=== PATIENT | male | born 1945 | race Caucasian/White ===

== ENCOUNTER 2020-01-09 10:23 | Inpatient (IN) | payer MEDICARE, BC ==
[2020-01-06 16:39] LABS: BASOPHILS # (AUTO) 0.1 (0.0-0.1); BASOPHILS % 0.8 % (0.0-1.0); EOSINOPHILS # (AUTO) 0.3 (0.0-0.4); EOSINOPHILS % 4.5 % (0.0-6.0); HEMATOCRIT 43.3 % (38.2-49.6); LYMPHOCYTES # (AUTO) 1.5 (1.0-3.2); LYMPHOCYTES % 23.2 % (18.0-39.1); MEAN CORPUSCULAR HEMOGLOBIN 29.7 pg (28-32); MEAN CORPUSCULAR HGB CONC 32.3 g/dL (31-35); MEAN CORPUSCULAR VOLUME 91.9 fL (81-99); MONOCYTES # (AUTO) 0.7 (0.2-0.8); MONOCYTES % 10.6 % (4.4-11.3); NEUTROPHILS % 60.6 % (38.7-80.0); PLATELET COUNT 191 x10e3/uL (140-360); RED BLOOD COUNT 4.71 x10e6/uL (4.3-5.7); RED CELL DISTRIBUTION WIDTH 13.8 % (11.7-14.4)
[2020-01-06 16:59] LABS: ANION GAP 11.7 mmol/L (8-16); CALCIUM 9.8 mg/dL (8.4-10.2); CREATININE, SERUM 1.27 mg/dL (0.72-1.25); POTASSIUM 4.7 mmol/L (3.5-5.1)
[~2020-01-09] VITALS: Ht 167.6 cm; Wt 65.8 kg
[~2020-01-09 10:23] MED LIST: ALLEGRA ALLERGY60 MG PO; ANORO ELLIPTA1 EACH INH; ANTI-DIARRHEAL2 MG PO; ATORVASTATIN CA20 MG PO; FINASTERIDE5 MG PO; MAGNESIUM100 MG PEG; MONTELUKAST SOD10 MG PO; MUCINEX DM ER1 EACH PO; MUCUS RELIEF400 MG PO; OMEGA-31000 MG PO; PATADAY2.5 ML OU; PROTONIX20 MG PO; RAPAFLO8 MG PO; TUMS ULTRA400 MG PO; VITAMIN B COMP1 EACH PO; VITAMIN C500 M4 PO; VITAMIN D3250 MC1 PEG; [UNRECOGNIZED DRUG - OTHER] PO
[2020-01-09] MEDS ORDERED: SODIUM CHLORIDE 0.9% 1000ML 1,000 ML ONE (10:39)
[2020-01-09] MEDS ORDERED: CEFTRIAXONE SOD 1 GM/NS 50 ML 50 ML IV ONE (10:43)
[2020-01-09] MEDS ORDERED: GENTAMICIN 80MG/NS 100 ML 200 ML IV ONE (10:44)
[2020-01-09] MEDS ORDERED: IRON GUMMIES PO (10:55)
[2020-01-09 11:22] LABS: ANION GAP 13.1 mmol/L (8-16); CALCIUM 9.5 mg/dL (8.4-10.2); CREATININE, SERUM 1.31 mg/dL (0.72-1.25); POTASSIUM 4.1 mmol/L (3.5-5.1)
[2020-01-09] MEDS ORDERED: IOPAMIDOL 300MG/ML 50ML INFUS..BTL IV ONE (11:22)
[2020-01-09] MEDS ORDERED: B&O 60MG R/S 60 MG SUPP PR ONE (11:23)
[2020-01-09] MEDS ORDERED: FENTANYL CITRATE/PF 100MCG/2 ML INJ ONE ×2 (12:48→13:23)
[2020-01-09] MEDS ORDERED: DIPHENHYDRAMINE HCL 25 MG CAP PO PRN (14:15)
[2020-01-09] MEDS ORDERED: ACETAMINOPHEN/CODEINE 300MG - 30MG TAB PO PRN (14:15)
[2020-01-09] MEDS ORDERED: ONDANSETRON HCL INJ 2MG/ML 2ML 2 MG/ML VIAL IV PRN (14:15)
[2020-01-09] MEDS ORDERED: B&O 60MG R/S 60 MG SUPP PR PRN (14:15)
[2020-01-09] MEDS ORDERED: METOCLOPRAMIDE HCL 10 MG/2ML VIAL ONE (14:18)
[2020-01-09] MEDS ORDERED: ONDANSETRON HCL INJ 2MG/ML 2ML 2 MG/ML VIAL ONE (15:33)
[2020-01-09] MEDS ORDERED: SEVOFLURANE INHAL SOLN 250 ML PEN BTL ONE (15:33)
[2020-01-09] MEDS ORDERED: PROPOFOL IV EMULSION 10 MG/ML 20 ML VIAL ONE (15:33)
[2020-01-09] MEDS ORDERED: LIDOCAINE HCL 2% LOCAL INJ 5 ML SDV VIAL INJ ONE (15:33)
[2020-01-09] MEDS ORDERED: HYDRALAZINE HCL 20 MG/ML VIAL ONE (15:33)
[2020-01-09] MEDS ORDERED: DEXAMETHASONE SOD PHOS INJ 4 MG/ML VIAL ONE (15:33)
[2020-01-09 16:07] LABS: BASOPHILS % 0.3 % (0.0-1.0); EOSINOPHILS # (AUTO) 0.1 (0.0-0.4); EOSINOPHILS % 0.6 % (0.0-6.0); HEMATOCRIT 42.2 % (38.2-49.6); HEMOGLOBIN 13.6 g/dL (14.0-18.0); LYMPHOCYTES % 8.2 % (18.0-39.1); MEAN CORPUSCULAR HGB CONC 32.2 g/dL (31-35); MONOCYTES # (AUTO) 0.3 (0.2-0.8); MONOCYTES % 2.8 % (4.4-11.3); NEUTROPHILS # (AUTO) 10.4 (2.1-6.9); NEUTROPHILS % 87.7 % (38.7-80.0); PLATELET COUNT 213 x10e3/uL (140-360); RED BLOOD COUNT 4.54 x10e6/uL (4.3-5.7); RED CELL DISTRIBUTION WIDTH 13.9 % (11.7-14.4)
[2020-01-09] MEDS: D5.45%NS/KCL 20MEQ 1,000 ML IV SCH (16:17)
[2020-01-09] MEDS: ACETAMINOPHEN/CODEINE 300MG - 30MG TAB PO PRN ×2 (16:18→21:23)
[2020-01-09 16:22] LABS: BLOOD UREA NITROGEN 16 mg/dL (7-26); BUN/CREATININE RATIO 15 (6-25); CALCIUM 8.1 mg/dL (8.4-10.2); CARBON DIOXIDE 20 mmol/L (22-29); CHLORIDE 109 mmol/L (98-107); CREATININE, SERUM 1.06 mg/dL (0.72-1.25); EST GLOMERULAR FILTRATION RATE > 60 ML/MIN (60-); GLUCOSE 160 mg/dL (74-118); SODIUM 138 mmol/L (136-145)
[2020-01-09 16:34] VITALS: BP 124/81
[2020-01-09 16:40] VITALS: BP 124/81
[2020-01-09] MEDS: CEFTRIAXONE SOD 1 GM/NS 50 ML 50 ML IV SCH (16:48)
[2020-01-09] MEDS: DOCUSATE SODIUM 100 MG CAP PO SCH (16:48)
[2020-01-09] MEDS ORDERED: MAGNESIUM SULFATE 2GM/50ML IV ONE (17:30)
[2020-01-09] MEDS ORDERED: GABAPENTIN 100 MG CAP PO PRN (17:45)
[2020-01-09] MEDS ORDERED: MAGNESIUM SULFATE 2GM/50ML 50 ML IV ONE (18:00)
[2020-01-09 19:56] VITALS: BP 118/96
[2020-01-09 20:00] VITALS: BP 118/96
[2020-01-09] MEDS: PHENAZOPYRIDINE HCL 100 MG TAB PO PRN (21:23)
[2020-01-09 23:52] VITALS: BP 130/85
[2020-01-10] VITALS (8 sets, daily range): BP systolic 120–149; BP diastolic 73–92
[2020-01-10] MEDS: D5.45%NS/KCL 20MEQ 1,000 ML IV SCH (02:42)
[2020-01-10 05:07] LABS: BASOPHILS % 0.1 % (0.0-1.0); HEMATOCRIT 33.9 % (38.2-49.6); HEMOGLOBIN 10.9 g/dL (14.0-18.0); LYMPHOCYTES # (AUTO) 0.8 (1.0-3.2); LYMPHOCYTES % 5.6 % (18.0-39.1); MEAN CORPUSCULAR HGB CONC 32.2 g/dL (31-35); MEAN CORPUSCULAR VOLUME 93.4 fL (81-99); MONOCYTES # (AUTO) 1.3 (0.2-0.8); MONOCYTES % 8.7 % (4.4-11.3); NEUTROPHILS # (AUTO) 12.2 (2.1-6.9); NEUTROPHILS % 85.3 % (38.7-80.0); PLATELET COUNT 176 x10e3/uL (140-360); RED BLOOD COUNT 3.63 x10e6/uL (4.3-5.7); RED CELL DISTRIBUTION WIDTH 13.9 % (11.7-14.4)
[2020-01-10 05:29] LABS: ANION GAP 10.8 mmol/L (8-16); BLOOD UREA NITROGEN 15 mg/dL (7-26); BUN/CREATININE RATIO 13 (6-25); CALCIUM 8.1 mg/dL (8.4-10.2); CARBON DIOXIDE 26 mmol/L (22-29); CHLORIDE 94 mmol/L (98-107); CREATININE, SERUM 1.15 mg/dL (0.72-1.25); EST GLOMERULAR FILTRATION RATE > 60 ML/MIN (60-); GLUCOSE 142 mg/dL (74-118); POTASSIUM 4.8 mmol/L (3.5-5.1); SODIUM 126 mmol/L (136-145)
[2020-01-10 05:52] LABS: MAGNESIUM 1.9 MG/DL (1.3-2.1); PHOSPHORUS 2.7 MG/DL (2.3-4.7)
[2020-01-10] MEDS ORDERED: TEMAZEPAM 15 MG CAP PO PRN (08:30)
[2020-01-10] MEDS: DOCUSATE SODIUM 100 MG CAP PO SCH ×2 (09:00→17:00)
[2020-01-10] MEDS: ACETAMINOPHEN/CODEINE 300MG - 30MG TAB PO PRN ×2 (09:00→23:25)
[2020-01-10] MEDS: CEFTRIAXONE SOD 1 GM/NS 50 ML 50 ML IV SCH (15:16)
[2020-01-10] MEDS: PHENAZOPYRIDINE HCL 100 MG TAB PO PRN (19:29)
[2020-01-11] VITALS (8 sets, daily range): BP systolic 121–159; BP diastolic 75–97
[2020-01-11 06:04] LABS: BASOPHILS % 0.3 % (0.0-1.0); EOSINOPHILS # (AUTO) 0.2 (0.0-0.4); EOSINOPHILS % 1.4 % (0.0-6.0); HEMATOCRIT 32.4 % (38.2-49.6); HEMOGLOBIN 10.4 g/dL (14.0-18.0); LYMPHOCYTES # (AUTO) 1.3 (1.0-3.2); LYMPHOCYTES % 12.5 % (18.0-39.1); MEAN CORPUSCULAR HEMOGLOBIN 29.9 pg (28-32); MEAN CORPUSCULAR HGB CONC 32.1 g/dL (31-35); MEAN CORPUSCULAR VOLUME 93.1 fL (81-99); MONOCYTES # (AUTO) 1.3 (0.2-0.8); NEUTROPHILS # (AUTO) 7.7 (2.1-6.9); NEUTROPHILS % 73.4 % (38.7-80.0); PLATELET COUNT 188 x10e3/uL (140-360); RED BLOOD COUNT 3.48 x10e6/uL (4.3-5.7); RED CELL DISTRIBUTION WIDTH 14.2 % (11.7-14.4)
[2020-01-11 06:39] LABS: ANION GAP 10.6 mmol/L (8-16); BLOOD UREA NITROGEN 14 mg/dL (7-26); BUN/CREATININE RATIO 12 (6-25); CALCIUM 9.7 mg/dL (8.4-10.2); CARBON DIOXIDE 26 mmol/L (22-29); CHLORIDE 104 mmol/L (98-107); CREATININE, SERUM 1.17 mg/dL (0.72-1.25); EST GLOMERULAR FILTRATION RATE > 60 ML/MIN (60-); GLUCOSE 122 mg/dL (74-118); POTASSIUM 4.6 mmol/L (3.5-5.1); SODIUM 136 mmol/L (136-145)
[2020-01-11] MEDS: DOCUSATE SODIUM 100 MG CAP PO SCH ×2 (08:32→17:00)
[2020-01-11] MEDS: ACETAMINOPHEN/CODEINE 300MG - 30MG TAB PO PRN (15:40)
[2020-01-11] MEDS: CEFTRIAXONE SOD 1 GM/NS 50 ML 50 ML IV SCH (17:00)
[2020-01-11] MEDS ORDERED: ONDANSETRON HCL INJ 2MG/ML 2ML 2 MG/ML VIAL IV STA (19:37)
[2020-01-12] VITALS (7 sets, daily range): BP systolic 136–148; BP diastolic 69–88
[2020-01-12] MEDS: SODIUM CHLORIDE 0.9% 1000ML 1,000 ML IV SCH ×2 (08:56→21:34)
[2020-01-12] MEDS: DOCUSATE SODIUM 100 MG CAP PO SCH ×2 (08:56→16:23)
[2020-01-12] MEDS: CEFTRIAXONE SOD 1 GM/NS 50 ML 50 ML IV SCH (14:36)
[2020-01-13] VITALS (7 sets, daily range): BP systolic 139–152; BP diastolic 79–92
[2020-01-13 05:09] LABS: BASOPHILS % 0.4 % (0.0-1.0); EOSINOPHILS # (AUTO) 0.2 (0.0-0.4); HEMATOCRIT 27.3 % (38.2-49.6); HEMOGLOBIN 9.1 g/dL (14.0-18.0); LYMPHOCYTES # (AUTO) 0.8 (1.0-3.2); LYMPHOCYTES % 10.3 % (18.0-39.1); MEAN CORPUSCULAR HEMOGLOBIN 30.7 pg (28-32); MEAN CORPUSCULAR HGB CONC 33.3 g/dL (31-35); MEAN CORPUSCULAR VOLUME 92.2 fL (81-99); MONOCYTES # (AUTO) 0.9 (0.2-0.8); MONOCYTES % 11.9 % (4.4-11.3); NEUTROPHILS # (AUTO) 5.6 (2.1-6.9); NEUTROPHILS % 74.1 % (38.7-80.0); PLATELET COUNT 164 x10e3/uL (140-360); RED BLOOD COUNT 2.96 x10e6/uL (4.3-5.7); RED CELL DISTRIBUTION WIDTH 13.4 % (11.7-14.4)
[2020-01-13 05:28] LABS: ANION GAP 9.3 mmol/L (8-16); BLOOD UREA NITROGEN 15 mg/dL (7-26); BUN/CREATININE RATIO 18 (6-25); CALCIUM 8.6 mg/dL (8.4-10.2); CARBON DIOXIDE 26 mmol/L (22-29); CHLORIDE 103 mmol/L (98-107); CREATININE, SERUM 0.82 mg/dL (0.72-1.25); EST GLOMERULAR FILTRATION RATE > 60 ML/MIN (60-); GLUCOSE 116 mg/dL (74-118); POTASSIUM 3.3 mmol/L (3.5-5.1); SODIUM 135 mmol/L (136-145)
[2020-01-13] MEDS ORDERED: CALCIUM CARBONATE 500 MG CHEWABLE TABS PO SCH (08:00)
[2020-01-13] MEDS ORDERED: POTASSIUM CHLORIDE 10MEQ EA PO ONE (08:15)
[2020-01-13] MEDS ORDERED: CALCIUM CARBONATE 500 MG CHEWABLE TABS PO PRN (08:45)
[2020-01-13] MEDS: DOCUSATE SODIUM 100 MG CAP PO SCH (08:51)
[2020-01-13] MEDS ORDERED: MONTELUKAST SODIUM 10 MG TAB PO SCH (09:00)
[2020-01-13] MEDS ORDERED: LORATADINE 10 MG TAB PO ONE (09:00)
[2020-01-13] MEDS ORDERED: OLOPATADINE (OPTH) 5 ML BTL OP SCH (09:00)
[2020-01-13] MEDS ORDERED: NON-FORMULARY MEDICATION (Silodosin (Rapaflo) 8 MG) PO SCH (09:00)
[2020-01-13] MEDS ORDERED: PANTOPRAZOLE SOD 40 MG TABEC PO SCH (09:00)
[2020-01-13] MEDS ORDERED: MAGNESIUM OXIDE 400 MG TAB PO SCH (09:00)
[2020-01-13] MEDS ORDERED: ACETAMINOPHEN 325 MG TAB PO ONE (09:00)
[2020-01-13] MEDS ORDERED: IRON SUCROSE 100 MG in SODIUM CHLORIDE 0.9% 100 ML 100 ML IV SCH (09:15)
[2020-01-13] MEDS: SODIUM CHLORIDE 0.9% 1000ML 1,000 ML IV SCH (11:38)
[2020-01-13] MEDS ORDERED: ONDANSETRON HCL 4 MG ORAL DISINTEGRATING TAB PO PRN (12:00)
[2020-01-13] MEDS: CEFTRIAXONE SOD 1 GM/NS 50 ML 50 ML IV SCH (14:15)
[2020-01-13] MEDS ORDERED: TYLENOL # 31 EA PO (15:24)
[2020-01-13] MEDS ORDERED: LEVOFLOXACIN250 MG PO (15:25)
[2020-01-13] MEDS ORDERED: FINASTERIDE 5 MG TAB PO SCH (21:00)
[2020-01-13] MEDS ORDERED: ATORVASTATIN 40 MG TAB PO SCH (21:00)
== END 2020-01-13 18:20 | disposition home or self-care (01) | DRG 713 ==
LOC: OR 10:23 → PACU V 14:12 → MED/SURG 14:50
PROVIDERS: ADMIT Internal Medicine; ATTEND Internal Medicine
PROC: 0VT08ZZ Resection of Prostate, Via Natural or Artificial Opening Endoscopic (ICD-10-PCS; principal; 2020-01-09 12:30)
PROC: BT141ZZ Fluoroscopy of Kidneys, Ureters and Bladder using Low Osmolar Contrast (ICD-10-PCS; 2020-01-09 12:30)
DX: N40.1 Benign prostatic hyperplasia with lower urinary tract symptoms (principal); N13.8 Other obstructive and reflux uropathy; E87.1 Hypo-osmolality and hyponatremia; N18.9 Chronic kidney disease, unspecified; N28.1 Cyst of kidney, acquired; K21.9 Gastro-esophageal reflux disease without esophagitis; I25.10 Atherosclerotic heart disease of native coronary artery without angina pectoris; J45.909 Unspecified asthma, uncomplicated; M19.90 Unspecified osteoarthritis, unspecified site; Z87.891 Personal history of nicotine dependence; E78.00 Pure hypercholesterolemia, unspecified; E78.5 Hyperlipidemia, unspecified; Z80.42 Family history of malignant neoplasm of prostate; R39.14 Feeling of incomplete bladder emptying; R35.1 Nocturia; N52.9 Male erectile dysfunction, unspecified; N50.0 Atrophy of testis; Z84.1 Family history of disorders of kidney and ureter; Z20.828 Contact with and (suspected) exposure to other viral communicable diseases; Z87.440 Personal history of urinary (tract) infections; D64.9 Anemia, unspecified; I12.9 Hypertensive chronic kidney disease with stage 1 through stage 4 chronic kidney disease, or unspecified chronic kidney disease
CPT/HCPCS: 36415; 71046; 74420; 80048; 83735; 84100; 85025; 88305; 93005; C1758; J0360; J0696; J1100; J1580; J1756; J2001; J2405; J2765; J3010; J3475; J7030; U0002